=== PATIENT | male | born 1970 | race Caucasian/White ===

== ENCOUNTER → 2017-03-29 | Outpatient (CLI) | payer BC, SELFPAY ==
[~2017-03-29] MED LIST: COLCHICINE0.6 MG PO; FENOFIBRATE200 MG PO; KEPPRA DPS500 MG PO; LIPITOR DPS10 MG PO; ZYLOPRIM-DPS300 MG PO
== END | disposition home or self-care (01) ==
LOC: RAD.S 14:51
DX: R93.8 Abnormal findings on diagnostic imaging of other specified body structures (principal); G40.909 Epilepsy, unspecified, not intractable, without status epilepticus

== ENCOUNTER → 2017-04-24 | Outpatient (CLI) | payer BC | END | disposition home or self-care (01) | LOC: RAD.S 14:00 | DX: R10.9 Unspecified abdominal pain (principal); R61 Generalized hyperhidrosis; R00.2 Palpitations ==